=== PATIENT | female | born 1965 | race Caucasian/White ===

== ENCOUNTER → 2016-03-30 | Outpatient (CLI) | payer BC ==
[~2016-03-30] MED LIST: GADAVIST IV PRN
--- NOTE | 2016-03-30 09:50 | DIAGNOSTIC IMAGING REPORT ---
MRI OF THE CERVICAL SPINE WITH AND WITHOUT CONTRAST CLINICAL HISTORY: Left C5 radiculopathy. New onset numbness in legs and trunk. History of demyelination. COMPARISON: Cervical spine MRI July 31, 2007. TECHNIQUE: Utilizing a 1.5 Clotilde magnet and dedicated coil, multiplanar, multiecho imaging of the cervical spine was performed before and after intravenous administration of 8 of Gadavist. FINDINGS: Alignment of the cervical spine is anatomic. Vertebral body heights are maintained. No suspicious marrow replacement is present. A T2 hyperintense focus within the left lamina and spinous process of C7 is unchanged exam of July 31, 2007. Stability over this time period indicates a benign etiology. There is no intracanalicular mass or fluid collection. Visualized portions of the posterior fossa are on remarkable. Paravertebral soft tissues are unremarkable. A 9 mm focus of increased T2 signal within the left posterolateral aspect of the cord at the C4-C5 level has decreased in size since exam of July 31, 2007. No associated enhancement is identified. No additional areas of cord signal abnormality are present. C2-C3: The central canal and neural foramen are patent. C3-C4: There is minimal disc bulge. The central canal and neural foramen are patent. C4-C5: The central canal and neural foramen are patent. C5-C6: There is mild posterior disc osteophyte complex with a small disc protrusion. There is mild narrowing of the central canal. The right neural foramen is mildly narrowed due to uncovertebral hypertrophy. C6-C7: There is mild posterior disc osteophyte complex with a small central disc protrusion. There is mild narrowing of the central canal. The neural foramen are patent. C7-T1: The central canal and neural foramen are patent. IMPRESSION: 1. Interval decrease in size of the T2 hyperintense focus within the cervical cord at the C4-C5 level since MRI of July 31, 2007. This suggests nonspecific demyelination. No new areas of demyelination identified. No cord enhancement. 2. Mild degenerative disc disease at C5-C6 and C6-C7 with mild central canal and neural foraminal stenosis at several levels. Electronically signed by: Marshall Mclaughlin M.D. 03/30/2016 9:48 AM Dictated Date/Time: 03/30/2016 9:39 AM
--- NOTE | 2016-03-30 10:18 | DIAGNOSTIC IMAGING REPORT ---
THORACIC SPINE MRI WITH AND WITHOUT CONTRAST HISTORY: CERVICAL Radiculopathy DISORDER TECHNIQUE: Multiplanar multisequence MRI of the thoracic spine was performed both before and after the intravenous administration of contrast. COMPARISON: None. FINDINGS: Alignment and curvature are intact. No fracture or subluxation. No significant central canal or neural foraminal narrowing. Small left paracentral focal disc protrusion at T11-T12. A 4 mm T1 and T2 hyperintense lesion at the superior endplate of T12 favors a hemangioma. The disc spaces are relatively preserved. Paraspinal soft tissues are unremarkable. The thoracic spinal cord is normal in caliber. There are 2, T2 hyperintense lesions seen within the thoracic spinal cord. The dominant lesion at the T6 level measures 1.7 cm. The second lesion at the T11-T12 disc space level measures 7 mm. These do not demonstrate abnormal enhancement. There are 2, T2 hyperintense, T1 hypointense enhancing lesions within the right hepatic lobe. The largest measures 1.7 cm. These likely represent hemangiomas. IMPRESSION: There are 2 foci of T2 hyperintensity seen within the thoracic spinal cord at the T6 and T11-T12 levels which do not demonstrate abnormal enhancement. These favor foci of demyelination. Electronically signed by: Richar Paige M.D. 03/30/2016 10:17 AM Dictated Date/Time: 03/30/2016 10:11 AM
== END | disposition home or self-care (01) ==
LOC: C.MRIBC 07:52
PROVIDERS: ATTEND Psychiatry & Neurology Neurology
DX: G37.9 Demyelinating disease of central nervous system, unspecified (principal); M54.12 Radiculopathy, cervical region; R20.9 Unspecified disturbances of skin sensation